=== PATIENT | female | born 1955 | race Caucasian/White ===

== ENCOUNTER → 2020-03-28 16:42 | Outpatient (CLI) | payer MEDICARE, OTHER, SELFPAY ==
--- NOTE | 2020-03-28 | DI.MRI.S_ITS ---
PROCEDURE: MR SHOULDER RT WO CON INDICATIONS: Right shoulder pain radiating into elbow TECHNIQUE: Noncontrast oblique coronal T2 fast spin echo with fat saturation, oblique sagittal T1 spin echo and T2 fast spin echo with fat saturation, axial T1 spin echo and T2 fast spin echo with fat saturation through the shoulder. COMPARISON: None. FINDINGS: Image quality: Excellent. Rotator cuff: Tendinosis and low to moderate grade articular and bursal surface partial-thickness tear involving distal supraspinatus and infraspinatus at their insertions on humeral head extending to musculotendinous junction. Distal subscapularis tendinosis and low-grade intrasubstance partial thickness tear is also seen. No definite full-thickness rotator cuff tendon rupture. Sagittal images demonstrate mild supraspinatus and infraspinatus muscle atrophy. Bones and bursae: No bone marrow contusions or fractures. Moderate acromioclavicular joint and glenohumeral joint osteoarthritic changes are seen with downward osteophyte formation compressing on musculotendinous junction of supraspinatus. Small amount of glenohumeral joint fluid in subacromial subdeltoid bursal fluid is seen. Capsule and soft tissues: In the absence of intra-articular contrast, there is suggestion of superior anterior labral tear at 12 to 2:00 position. The glenohumeral ligaments appear intact. The long head of the biceps tendon demonstrates normal location and morphology. The rotator interval appears normal, without fibrosis. The coracohumeral ligament is normal in thickness. IMPRESSION: 1. Tendinosis and low to moderate grade articular and bursal surface partial-thickness tear involving distal supraspinatus at its insertion the humeral head extending to musculotendinous junction. Distal subscapularis tendinosis and low-grade intrasubstance partial-thickness tear. Mild supraspinatus and infraspinatus muscle atrophy. 2. Suggestion of superior anterior labral tear at L2 to o'clock position. 3. Moderate acromioclavicular joint and glenohumeral joint osteoarthritis. Dictated by: Maxx Chavis M.D. on 03/29/2020 at 9:09 Approved by: Maxx Chavis M.D. on 03/29/2020 at 9:28
== END ==
PROVIDERS: PCP Family Medicine; Referring Provider Family Medicine; Visit Provider Family Medicine
DX: M25.511 Pain in right shoulder (principal); M75.111 Incomplete rotator cuff tear or rupture of right shoulder, not specified as traumatic; M19.011 Primary osteoarthritis, right shoulder
CPT/HCPCS: 73221